=== PATIENT | female | born 1965 | race African-American/Black ===

== ENCOUNTER 2017-11-08 18:57 | Emergency (ER) | payer OTHER, SELFPAY ==
[2017-11-08 19:32] LABS: Hemoglobin 13.9 g/dL (12.0-16.0); Mean Corpuscular HGB CONC 34.8 g/dL (32.0-36.0); Mean Corpuscular Hemoglobin 31.6 pg (27.0-31.0); Mean Corpuscular Volume 90.9 fL (78.0-98.0); Platelet Count 165 thou/uL (130-400); RBC Distribution Width 13.6 % (11.5-14.5); Red Blood Cell (RBC) Count 4.41 mill/uL (4.20-5.40); White Blood Cell (WBC) Count 6.1 thou/uL (4.8-10.8)
[2017-11-08 19:46] LABS: Eosinophils 2 % (0-10); Lymphocytes 63 % (21-51); MDiff Complete? YES; Neutrophil 35 % (42-75); PLT Morphology Comment Appears Adequate; RBC Morphology Normal
[2017-11-08 19:50] LABS: ALT (SGPT) 21 U/L (8-55); AST (SGOT) 45 U/L (5-34); Albumin 3.9 g/dL (3.5-5.0); Alkaline Phosphatase 105 U/L (40-150); Anion Gap 12 mmol/L (10-20); BUN (Urea Nitrogen) 10 mg/dL (9.8-20.1); Bilirubin, Total 0.4 mg/dL (0.2-1.2); CK (CPK) 73 U/L (29-168); Calc. Creatinine Clearance 0 mL/min (70-130); Carbon Dioxide 24 mmol/L (22-29); Chloride 108 mmol/L (98-107); Estimated GFR-MDRD 88; Glucose 90 mg/dL (70-105); Potassium 3.5 mmol/L (3.5-5.1); Protein, Total 7.9 g/dL (6.0-8.3); Sodium 140 mmol/L (136-145)
[2017-11-08 19:55] LABS: CKMB 1.1 ng/mL (0-6.6); Troponin I Less than 0.010 ng/mL (< 0.028)
[2017-11-08] MEDS ORDERED: predniSONE 20 MG TAB ONE (20:14)
[2017-11-08] MEDS ORDERED: Sucralfate 1 GM/10 ML UDCUP ONE (20:14)
[2017-11-08] MEDS ORDERED: Nitroglycerin 2% Ointment 1 INCH/1 GM Packet ONE (20:14)
--- NOTE | 2017-11-08 20:36 | RAD ---
CHEST ONE VIEW 11/08/17 HISTORY: Chest pain. COMPARISON: Chest radiograph 12/15/08. FINDINGS: Lungs are hypoinflated with vascular crowding. No focal air space consolidation, pneumothorax or effu don. No acute osseous abnormality. IMPRESSION: No acute intrathoracic abnormality. POS: [facility]
[2017-11-08] MEDS ORDERED: Hydrochlorothiazide 25 MG TAB PO SCH (21:00)
[2017-11-08] MEDS ORDERED: Amlodipine 5 MG TAB ONE (21:06)
[2017-11-08] MEDS ORDERED: Nitroglycerin 0.4 MG TAB (25 Tab Bottle) ONE (21:54)
[2017-11-08 23:09] LABS: Troponin I Less than 0.010 ng/mL (< 0.028)
== END 2017-11-08 23:40 | disposition home or self-care (01) ==
LOC: ERS 18:57
DX: R07.2 Precordial pain (principal); R06.2 Wheezing; K21.9 Gastro-esophageal reflux disease without esophagitis; I10 Essential (primary) hypertension; F32.9 Major depressive disorder, single episode, unspecified; F17.210 Nicotine dependence, cigarettes, uncomplicated
CPT/HCPCS: 36415; 71045; 80053; 82550; 82553; 84484; 85025; 93005; 99406; J7506; J7620

== ENCOUNTER 2017-11-25 19:30 | Outpatient (CLI) | payer OTHER | END 2017-11-25 19:31 | disposition home or self-care (01) | LOC: SLEEPLAB 19:30 | DX: G47.33 Obstructive sleep apnea (adult) (pediatric) (principal); E66.9 Obesity, unspecified; G47.10 Hypersomnia, unspecified; F32.9 Major depressive disorder, single episode, unspecified; I10 Essential (primary) hypertension | CPT/HCPCS: 95810 ==

== ENCOUNTER 2018-03-06 13:57 | Outpatient (CLI) | payer OTHER | END 2018-03-06 13:58 | disposition home or self-care (01) | LOC: BICMAMMO 13:57 | PROVIDERS: ATTEND Family Medicine | DX: Z12.31 Encounter for screening mammogram for malignant neoplasm of breast (principal) | CPT/HCPCS: 77067 ==

== ENCOUNTER → 2018-03-21 | Day surgery (SDC) | payer OTHER ==
[2018-03-20 09:24] VITALS: BMI 47.5
[~2018-03-21] MED LIST: Acetaminophen 500 MG TAB ONE; Enalaprilat Dihydrate 1.25 MG/ML VIAL SLOW IVP SCH; Lidocaine 1% PF 5 ML VIAL ONE; PROPOFOL 200 MG/20 ML VIAL ONE
--- NOTE | 2018-03-21 16:52 | OP ---
DATE OF PROCEDURE: 03/21/2018 GI ENDOSCOPY NOTE PROOF COIN COLLECTOR SURGEON: None. PROCEDURE PERFORMED: Colonoscopy with snare polypectomy. INDICATION: Average risk colon cancer screening exam. The patient is a 52-year-old. This is her first colonoscopy. MEDICATIONS: See Anesthesia record. FINDINGS: After discussion of the risks, benefits, and alternatives of the procedure, informed consent was obtained and witnessed. Pre-endoscopic cardiopulmonary examination was satisfactory. Time-out was performed before sedation was achieved. Sedation was achieved with Anesthesia assistance in the endoscopy unit. Digital rectal exam was performed, which demonstrated external hemorrhoidal skin tags. A Pentax adult colonoscope was inserted into the anus and passed forward to the cecum in the usual fashion. The cecal base was identified by the appendiceal orifice as well as the ileocecal valve. The terminal ileum was not intubated. The colonoscope was slowly withdrawn in a gradual and circumferential manner with careful examination of the entire colonic mucosa. The quality of the prep was good. In the proximal rectum, there was a single sessile polyp measuring about 3 mm in diameter. This was completely removed with cold snare and retrieved for pathology. The remainder of the colonic mucosa appeared normal throughout. Retroflexion of the rectum demonstrated some hypertrophied anal papillae and internal hemorrhoids. The colonoscope was completely withdrawn, and the patient allowed to recover. The patient tolerated the procedure well. There were no immediate postprocedure complications. IMPRESSION: 1. 3 mm rectal polyp, completely removed with cold snare and retrieved for pathology. 2. Internal hemorrhoids. 3. External hemorrhoidal skin tags. 4. Otherwise, normal colonoscopy to the cecum. RECOMMENDATIONS: 1. Follow up pathology results on the rectal polyp. 2. If the polyp is hyperplastic, repeat colonoscopy for screening in 10 years. 3. If the polyp pathology is adenomatous, repeat colonoscopy for surveillance in 5 years. Job ID: [id number]
== END ==
LOC: SDC 10:01
PROVIDERS: ATTEND Internal Medicine
PROC: 0DBP8ZZ Excision of Rectum, Via Natural or Artificial Opening Endoscopic (ICD-10-PCS; principal; 2018-03-21)
DX: Z12.11 Encounter for screening for malignant neoplasm of colon (principal); K63.5 Polyp of colon; K64.4 Residual hemorrhoidal skin tags; K64.8 Other hemorrhoids; D64.9 Anemia, unspecified; I10 Essential (primary) hypertension; E78.00 Pure hypercholesterolemia, unspecified; E66.01 Morbid (severe) obesity due to excess calories; Z68.42 Body mass index [BMI] 45.0-49.9, adult; F32.9 Major depressive disorder, single episode, unspecified; K21.9 Gastro-esophageal reflux disease without esophagitis; Z98.51 Tubal ligation status; Z79.899 Other long term (current) drug therapy; Z98.890 Other specified postprocedural states
CPT/HCPCS: 88305; 96374; J2001; J2704

== ENCOUNTER 2019-05-30 12:57 | Emergency (ER) | payer OTHER ==
[2019-05-30] MEDS ORDERED: Ketorolac Tromethamine 30 MG/ML VIAL ONE (14:07)
[2019-05-30] MEDS ORDERED: Diazepam 5 MG TAB ONE (14:39)
== END 2019-05-30 14:50 | disposition home or self-care (01) ==
LOC: ERS 12:57
DX: M54.2 Cervicalgia (principal); I10 Essential (primary) hypertension; K21.9 Gastro-esophageal reflux disease without esophagitis; F32.9 Major depressive disorder, single episode, unspecified; Z87.891 Personal history of nicotine dependence; Z79.899 Other long term (current) drug therapy
CPT/HCPCS: 96372; 99283; J1885

== ENCOUNTER 2019-12-01 13:48 | Outpatient (CLI) | payer OTHER ==
--- NOTE | 2019-12-01 16:08 | MRI ---
MRI RIGHT SHOULDER WITHOUT CONTRAST: Date: 12/01/2019 INDICATION: Right shoulder pain with limited and painful range of motion since being handcuffed on 05/27/2019. COMPARISON: None. FINDINGS: There is susceptibility artifact in the greater tuberosity and within the skin overlying the lateral right shoulder likely related to prior rotator cuff repair. There are defects involving the anterior inferior glenoid suspicious for sequelae of prior labral tear. Susceptibility artifact and motion art ifact heavily limits the image detail on exam. No definite full thickness rotator cuff tear is eviden t. There is mild suggested tendinosis of the supraspinatus and infraspinatus. There is a small amount of fluid seen within the subacromial and subdeltoid bursa which is nonspecific. There is postprocedu ral change of a distal clavicle excision. No rotator cuff muscular atrophy is evident. IMPRESSION: 1. Technically limited exam due to motion artifact and susceptibility artifact during the study. The re is no definite full thickness rotator cuff tear. 2. Small amount of fluid in the subacromial and subdeltoid bursa may reflect bursitis. 3. Postprocedural change of a prior rotator cuff tear and glenoid labral repair. POS: [facility]
== END 2019-12-01 13:49 | disposition home or self-care (01) ==
LOC: BICMRI 13:48
PROVIDERS: ATTEND Family Medicine
DX: M25.511 Pain in right shoulder (principal); M25.411 Effusion, right shoulder; Z98.890 Other specified postprocedural states

== ENCOUNTER 2020-01-03 17:41 | Observation (INO) | payer OTHER ==
[2020-01-03] MEDS ORDERED: Metoprolol Tartrate 5 MG/5 ML VIAL ONE (18:19)
--- NOTE | 2020-01-03 18:24 | RAD ---
Portable frontal chest radiograph: 01/03/2020 COMPARISON: 11/08/2017 HISTORY: Dizziness, nausea and vomiting FINDINGS: Lungs are clear. Heart and mediastinal contours appear within normal limits. IMPRESSION: No acute findings.
[2020-01-03] MEDS ORDERED: Ondansetron PF 4 MG/2 ML Vial ONE (18:27)
[2020-01-03 18:34] LABS: #Basophils 0.1 thou/uL (0.0-0.2); #Lymphocytes 2.9 thou/uL (1.20-3.40); #Monocytes 0.6 thou/uL (0.11-0.59); #Neutrophils 5.7 thou/uL (1.40-6.50); %Basophils 0.6 % (0.0-1.0); %Eosinophils 0.4 % (0.0-10.0); %Lymphocytes 31.4 % (21.0-51.0); %Monocytes 6.1 % (0.0-10.0); %Neutrophils 61.5 % (42.0-75.0); Hemoglobin 17.3 g/dL (12.0-16.0); Mean Corpuscular HGB CONC 35.5 g/dL (32.0-36.0); Mean Corpuscular Hemoglobin 32.1 pg (27.0-31.0); Mean Corpuscular Volume 90.4 fL (78.0-98.0); Mean Platelet Volume 8.2 fL (7.4-10.4); Platelet Count 198 thou/uL (130-400); RBC Distribution Width 12.5 % (11.5-14.5); White Blood Cell (WBC) Count 9.3 thou/uL (4.8-10.8)
[2020-01-03 18:54] LABS: ALT (SGPT) 22 U/L (8-55); AST (SGOT) 36 U/L (5-34); Albumin 4.8 g/dL (3.5-5.0); Alkaline Phosphatase 108 U/L (40-110); Anion Gap 21 mmol/L (10-20); BUN (Urea Nitrogen) 34 mg/dL (9.8-20.1); Calc. Creatinine Clearance 0 mL/min (70-130); Carbon Dioxide 21 mmol/L (22-29); Chloride 99 mmol/L (98-107); Estimated GFR-MDRD 39; Globulin 4.6 g/dL (2.4-3.5); Glucose 134 mg/dL (70-105); Potassium 3.4 mmol/L (3.5-5.1); Protein, Total 9.4 g/dL (6.0-8.3); Sodium 138 mmol/L (136-145)
--- NOTE | 2020-01-03 19:53 | PDOC.FPRHP ---
- History of Present Illness Chief Complaint: Diaphoretic, N/V History of Present Illness: Pt is 1 54 yo female with PMH of HTN, HLD, prediabetes, and depression who presented to the ED for diaphoresis, dizziness, palpitations, and N/V. She reports that she has had a decreased appetite for the past 3-4 days and this morning she began to have episodes of sweating with associated nausea. She attempted to attend her granddaughters birthday libertarian, but remained diaphoretic and nauseas. She reports that she would become dizzy while standing and has had some changes in her vision. She also reports leg cramps that began earlier this week and Patient was recently started on lisinopril but stopped taking it on Sunday due to the above symptoms. Denies fever, chills, SOB, CP. ED Course: Tachycardic to the 150s on arrival Given 500 ml NS, 5 mg of metformin, and zofran - Allergies/Adverse Reactions Allergies Allergy/AdvReac Type Severity Reaction Status Date / Time No Known Allergies Allergy Verified 01/03/20 22:00 - Home Medications Medication Instructions Recorded Confirmed Type Amlodipine [Norvasc] 10 mg PO DAILY 03/20/18 01/03/20 History Atorvastatin Calcium [Lipitor] 80 mg PO HS 03/20/18 01/03/20 History Cyclobenzaprine [Flexeril] 10 mg PO TID PRN 01/03/20 01/03/20 History FLUoxetine HCl [Fluoxetine HCl] 40 mg PO DAILY 01/03/20 01/03/20 History Famotidine [Pepcid] 40 mg PO DAILY 01/03/20 01/03/20 History Hydrochlorothiazide 12.5 mg PO HS 01/03/20 01/03/20 History Hydrochlorothiazide 25 mg PO QAM 01/03/20 01/03/20 History - History PMHx: HTN, HLD, prediabetes, depression, constipation PSHx: tubal ligation, hemorrhoidectomy, R. rotator cuff repair, trigger thumb release FHx: Mother - diabetes, HTN, depression Social: Denies t/a/d - Review of Systems General: denies: fever/chills, weight/appetite/sleep changes Eyes: reports: vision changes ENT: denies: nasal congestion, rhinorrhea Respiratory: denies: cough, congestion, shortness of breath Cardiovascular: reports: palpitation, edema. denies: chest pain Gastrointestinal: reports: nausea, vomiting. denies: diarrhea, constipation Genitourinary: denies: dysuria, polyuria Skin: denies: rashes, lesions Musculoskeletal: reports: pain, swelling Neurological: reports: weakness. denies: numbness Psychological: reports: depression. denies: anxiety - Vital signs BP: 155/118 HR: 119 RR: 20 Tmax: 98.6 Pox: 96% on RA Wt: 118 kg - Physical Exam Constitutional: NAD, awake, alert and oriented HEENT: normocephalic and atraumatic, PERRLA, EOMI Neck: supple, FROM Heart: RRR, normal S1/S2 Lungs: CTAB, no respiratory distress Abdomen: soft, non-tender, bowel sounds present Musculoskeletal: normal structure, normal tone Neurological: no focal deficit, normal sensation Skin: no rash/lesions, no jaundice Heme/Lymphatic: no unusual bruising or bleeding, no purpura, no petechia Psychiatric: normal mood and affect, good judgment and insight, intact recent and remote memory FMR H&P: Results - Labs Result Diagrams: 01/04/20 04:57 01/04/20 04:57 Lab results: WBC 9.3 thou/uL (4.8-10.8) 01/03/20 18:23 Hgb 17.3 g/dL (12.0-16.0) H 01/03/20 18:23 Hct 48.8 % (36.0-47.0) H 01/03/20 18:23 MCV 90.4 fL (78.0-98.0) 01/03/20 18:23 Plt Count 198 thou/uL (130-400) 01/03/20 18:23 Neutrophils % 61.5 % (42.0-75.0) 01/03/20 18:23 Sodium 138 mmol/L (136-145) 01/03/20 18:23 Potassium 3.4 mmol/L (3.5-5.1) L 01/03/20 18:23 Chloride 99 mmol/L (98-107) 01/03/20 18:23 Carbon Dioxide 21 mmol/L (22-29) L 01/03/20 18:23 BUN 34 mg/dL (9.8-20.1) H 01/03/20 18:23 Creatinine 1.66 mg/dL (0.6-1.1) H 01/03/20 18:23 Glucose 134 mg/dL (70-105) H 01/03/20 18:23 Calcium 10.0 mg/dL (7.8-10.44) 01/03/20 18:23 Total Bilirubin 1.0 mg/dL (0.2-1.2) 01/03/20 18:23 AST 36 U/L (5-34) H 01/03/20 18:23 ALT 22 U/L (8-55) 01/03/20 18:23 Alkaline Phosphatase 108 U/L (40-110) 01/03/20 18:23 B-Natriuretic Peptide Less than 10.0 pg/mL (0-100) 01/03/20 18:23 Serum Total Protein 9.4 g/dL (6.0-8.3) H 01/03/20 18:23 Albumin 4.8 g/dL (3.5-5.0) 01/03/20 18:23 - EKG Interpretation EKG: Sinus tachycardia in 150s, repeat showed ST in 140s - Radiology Interpretation Chest x-ray Status: image reviewed by me, report reviewed by me Additional comment: unremarkable FMR H&P: A/P - Problem List (1) NATY (acute kidney injury) Current Visit: Yes Status: Acute Code(s): N17.9 - ACUTE KIDNEY FAILURE, UNSPECIFIED (2) Dehydration Current Visit: Yes Status: Acute Code(s): E86.0 - DEHYDRATION (3) Tachycardia Current Visit: Yes Status: Acute Code(s): R00.0 - TACHYCARDIA, UNSPECIFIED (4) Hypertension Current Visit: Yes Status: Chronic Code(s): I10 - ESSENTIAL (PRIMARY) HYPERTENSION (5) Hyperlipemia Current Visit: Yes Status: Chronic Code(s): E78.5 - HYPERLIPIDEMIA, UNSPECIFIED (6) Prediabetes Current Visit: Yes Status: Chronic Code(s): R73.03 - PREDIABETES - Plan NATY likely 2/2 to dehydration - per patient, decreased PO intake - s/p 500 mls of NS in ED - Cr: 1.66, Cr of 0.78 on 06/2018 - will continue IV fluids of LR @ 150mls/hr - will monitor with morning BMP Tachycardia - likely 2/2 to above - s/p 500 NS in ED - will start patient on 3.125 of Coreg BID for BP and HR control - will obtain TSH HTN - patient recently started on Lisinopril, has not taken medication since Sunday - will hold Lisinopril - will continue amlodipine and HCTZ - will start Coreg as above - due to patient's presentation and ER reports of chest pain, we will continue to trend troponin - Troponin: less than 0.010 HLD - will continue home atorvastatin - will obtain fasting lipid panel Prediabetes - will obtain A1C Depression - continue home fluoxetine PCP: Francois Code: FULL Diet: HH IVF: LR @ 150 mls/hr for 2 bags PPx: Lovenox Dispo: Will admit to tele for further observation; likely LOS < 48 hrs. FMR H&P: Upper Level - Plan Date/Time: 01/03/201952 IGurpreet DO, have evaluated this patient and agree with findings/plan as outlined by phd internship resident. Pertinent changes/additions are listed here. This is a 54 yo female with a pmh of obesity, HTN, and prediabetes who presents to the ER with a cc of chest pain. She states her symptoms have been going on for the last day or two and are associated with SOB, diaphoresis, fatigue, and palpitations. She has currently been trying to adjust her BP medications and was put on Lisinopril for her BP. She states that her symptoms started since then and has not taken the lisinopril in a week. She states that she has been feeling diaphoretic and this worsens when she is moving. If she sits still, she reports the sweating resolves on its own. It appears that these side effects started yesterday and she called the clinic and was instructed to stop the Lisinopril. In addition, she takes Amlodipine 10mg daily, and HCTZ 25mg BID. She currently reports that she is asymptomatic. Objective: Vitals: BP 161/114, HR 108, RR 17, Temp 98.2, SpO2 98 RA, Wt 117 kg General: NAD HEENT: AT/NC Cardio: RRR, no murmurs Lungs: CTAB Abdomen: Soft, nontender, BS+ A/P Hypertension, uncontrolled -Admit to tele obs -Radial cuff poorly placed, repeat BP shows 132/92 -Continue home BP medications -Stop Lisinopril -S/P 500ml NS in the er, will continue maintenance fluids -labetalol PRN -Trend troponins, Neg x1 -EKG shows Sinus tachycardia, will repeat now that her HR is lower -Will add coreg to her regimen NATY -Last labs show baseline Cr of 0.78 in 06/2018 -Will trend with BMP and treat with hydration -Likely due to dehydration and new ACEi Anion gap of 18 -Likely 2/2 dehydration and NATY -Will monitor with AM BMP -Continue fluids Dehydrations -As above Prediabetes -Will repeat A1c during hospital stay Code: Full Prophylaxis: Lovenox Family: none at bedside Fluids: LR Diet: HH Disposition: DC in 1-2 days PCP: RASHMI Camilo Addendum - Attending - Attending Attestation Date/Time: 01/04/20 7530 I personally evaluated the patient and discussed the management with Dr. Johnston I agree with the History, Examination, Assessment and Plan documented above with any addition or exceptions noted below.
[2020-01-03] MEDS ORDERED: Aspirin Chewable 81 MG TAB ONE (19:54)
[2020-01-03] MEDS ORDERED: Ondansetron PF 4 MG/2 ML Vial IVP PRN (20:21)
[2020-01-03] MEDS ORDERED: Ondansetron ODT 4 MG TAB PO PRN (20:21)
[2020-01-03] MEDS ORDERED: Acetaminophen 325 MG TAB PO PRN (20:21)
[2020-01-03 21:05] LABS: Hemoglobin A1c 5.8 % (4.0-6.0)
[2020-01-03 21:49] LABS: Troponin I 0.015 ng/mL (< 0.028)
[2020-01-03 22:13] VITALS: BMI 44.1
[2020-01-03] MEDS ORDERED: Carvedilol 3.125 MG TAB PO SCH (22:30)
[2020-01-03] MEDS ORDERED: Hydrochlorothiazide 25 MG TAB PO SCH (23:15)
[2020-01-03] MEDS ORDERED: Atorvastatin Calcium 40 MG TAB PO SCH (23:15)
[2020-01-03] MEDS: Lactated Ringer's 1,000 ML IV SCH (23:27)
[2020-01-04 01:19] LABS: Troponin I 0.019 ng/mL (< 0.028)
[2020-01-04 05:14] LABS: #Basophils 0.1 thou/uL (0.0-0.2); #Eosinphils 0.1 thou/uL (0.0-0.7); #Lymphocytes 3.3 thou/uL (1.20-3.40); #Monocytes 0.7 thou/uL (0.11-0.59); #Neutrophils 4.5 thou/uL (1.40-6.50); %Basophils 0.9 % (0.0-1.0); %Eosinophils 0.6 % (0.0-10.0); %Lymphocytes 38.2 % (21.0-51.0); %Monocytes 8.3 % (0.0-10.0); %Neutrophils 52.1 % (42.0-75.0); Hemoglobin 15.4 g/dL (12.0-16.0); Mean Corpuscular HGB CONC 32.6 g/dL (32.0-36.0); Mean Corpuscular Hemoglobin 29.6 pg (27.0-31.0); Mean Corpuscular Volume 90.8 fL (78.0-98.0); Mean Platelet Volume 8.5 fL (7.4-10.4); Platelet Count 182 thou/uL (130-400); RBC Distribution Width 12.6 % (11.5-14.5); Red Blood Cell (RBC) Count 5.21 mill/uL (4.20-5.40); White Blood Cell (WBC) Count 8.6 thou/uL (4.8-10.8)
[2020-01-04 05:40] LABS: Anion Gap 17 mmol/L (10-20); BUN (Urea Nitrogen) 33 mg/dL (9.8-20.1); Calc. Creatinine Clearance 106 mL/min (70-130); Calcium 9.6 mg/dL (7.8-10.44); Carbon Dioxide 21 mmol/L (22-29); Cardiac Risk 3.7 (Less than 4.5); Chloride 100 mmol/L (98-107); Cholesterol 146 mg/dl (< 200 Desired); Estimated GFR-MDRD 60; Glucose 96 mg/dL (70-105); HDL Cholesterol 40 mg/dL (>60 Neg Risk); LDL Cholesterol, Calculated 87 mg/dL; Potassium 3.6 mmol/L (3.5-5.1); Sodium 134 mmol/L (136-145); Triglycerides 97 mg/dL (Less than 150)
[2020-01-04] MEDS: Lactated Ringer's 1,000 ML IV SCH (06:37)
--- NOTE | 2020-01-04 06:51 | PDOC.FM ---
- Subjective Subjective: Patient feels much improved today. No issues voiding, no sxs with ambulating- ready to go home. States she had dec appetite from depression-interested in counseling - Objective MAR Reviewed: Yes Vital Signs & Weight: Vital Signs (12 hours) Temp Pulse Resp BP BP Pulse Ox 01/04/20 04:00 98.7 F 107 H 17 115/82 95 01/04/20 00:00 98.1 F 100 19 121/97 H 96 01/03/20 23:34 117 H 121/97 H 01/03/20 21:55 98.9 F 115 H 18 144/98 H 97 Weight Weight 120.474 kg I&O: 01/02/20 01/03/20 01/04/20 06:59 06:59 06:59 Intake Total 390 Output Total 1 Balance 389 Result Diagrams: 01/04/20 04:57 01/04/20 04:57 Phys Exam - Physical Examination Constitutional: NAD HEENT: PERRLA, moist MMs Respiratory: no wheezing, clear to auscultation bilateral Cardiovascular: no significant murmur Gastrointestinal: soft, non-tender, no distention Musculoskeletal: no edema Neurological: non-focal, moves all 4 limbs Psychiatric: A&O x 3 Deviation from normal: anxious affect Dx/Plan - Plan Plan: NATY likely 2/2 to dehydration - Cr trending down with IVF Tachycardia - Improved with hydration - Residual tachycardia from anxiety HTN - d/c lisinopril - will continue amlodipine and HCTZ - continue Coreg as above, send home on this - pt denies ever having chest pain, trops neg. x3,no further cardiac w/u indicated HLD - will continue home atorvastatin - FLP at goal Prediabetes - a1c 5.8, at goal Depression - continue home fluoxetine PCP: Francois Code: FULL Diet: HH IVF: LR @ 150 mls/hr for 2 bags PPx: Lovenox Dispo: Wd/c today Addendum - Attending - Attending Attestation Date/Time: 01/04/20 [id number] I personally evaluated the patient and discussed the management with Dr. Isidro I agree with the History, Examination, Assessment and Plan documented above with any addition or exceptions noted below.
[2020-01-04] MEDS ORDERED: Carvedilol 3.125 MG TAB PO SCH (08:00)
[2020-01-04] MEDS ORDERED: Amlodipine 10 MG TAB PO SCH (09:00)
[2020-01-04] MEDS ORDERED: FLUoxetine HCl 20 MG CAP PO SCH (09:00)
[2020-01-04] MEDS ORDERED: Famotidine 20 MG TAB PO SCH (09:00)
[2020-01-04] MEDS ORDERED: Hydrochlorothiazide 25 MG TAB PO SCH ×2 (09:00→21:00)
[2020-01-04] MEDS ORDERED: Enoxaparin Sodium 40 MG/0.4 ML SYRINGE SC SCH (09:00)
[2020-01-04 12:40] LABS: SARS-CoV-2 MS2 Positive; SARS-CoV-2 N Gene Negative; SARS-CoV-2 S Gene Negative; SARS-CoV-2 by NAA Not Detected (NotDetected); SARS-CoV-2 orf1ab Negative
[2020-01-04 12:51] VITALS: BP 129/90; TEMP 98.1
[2020-01-04] MEDS ORDERED: FLU VACC QS2020-21(6MOS UP)/PF 60 MCG/0.5 ML SYRINGE IM ONE (21:00)
[2020-01-04] MEDS ORDERED: Atorvastatin Calcium 40 MG TAB PO SCH (21:00)
--- NOTE | 2020-01-11 20:22 | DIS ---
DATE OF ADMISSION: 01/03/2020 DATE OF DISCHARGE: 01/04/2020 CONSULTS: None. PRIMARY DIAGNOSES: 1. Acute kidney injury secondary to dehydration. 2. Possible adverse effect from lisinopril. 3. Dehydration secondary to depression. 4. Tachycardia. IMAGING: Chest x-ray, no acute findings. DISCHARGE MEDICATIONS: New medication: 1. Coreg 3.125 mg p.o. b.i.d. 2. Zofran 4 mg p.o. q.6 hours p.r.n. for nausea. Resume all home medications: 1. Atorvastatin 80 mg p.o. at bedtime. 2. Amlodipine 10 mg p.o. daily. 3. HCTZ 12.5 mg p.o. at bedtime. 4. HCTZ 25 mg p.o. q.a.m. 5. Fluoxetine 40 mg p.o. daily. 6. Famotidine 40 mg p.o. daily. 7. Cyclobenzaprine 10 mg p.o. t.i.d. p.r.n. for muscle spasm. 8. Tylenol. Discontinued medications: Lisinopril. HISTORY OF PRESENT ILLNESS AND HOSPITAL COURSE: Ms. Brenda Anand is a 54-year-old female with prediabetes and hypertension, who came in for diaphoresis, nausea, and vomiting. She had decreased p.o. intake in the past 4 days because she had been feeling more depressed thinking about the passing of her mother. The day she came in, she felt acutely worse with nausea and vomiting and diaphoresis. She went to the ER in which she was found to have an NATY, thought likely secondary to dehydration. She was started on IV fluids and improved back to baseline overnight. In addition, she was found to have tachycardia, which improved and was down to 100 to 110 upon discharge. On examination, she was not tachycardic for me, and she was also a little anxious, which could explain that. EKG showed sinus tachycardia. She denies having any palpitations or any prior cardiac history or symptoms from there. TSH was negative. Overall, the patient was likely experiencing symptoms from dehydration and NATY. A discussion was had, and the patient was interested in counseling, which she will discuss with her PCP on a followup on Sunday. Can consider switching from Prozac, however, it seems to be working for her with only periodic depressive days. In addition, please discontinue patient's lisinopril. She had been off it the past week because she felt as if it was causing her leg cramps, though that was likely from dehydration. She was started on Coreg in which her blood pressure responded well. Can continue this also for pulse control. Please follow up on pulse in outpatient setting. The patient stable and asymptomatic at time of discharge. DISPOSITION: Stable. DISCHARGE INSTRUCTIONS: 1. Location: Home. 2. Diet: Heart healthy. 3. Activity: Ad xavier as tolerated. 4. Followup: Please follow up with PCP, Dr. Parrish on Sunday at [facility]. 5. Please follow up for NATY, may consider repeat BMP since her creatinine was improved but not at baseline on discharge. 6. Please follow up to make sure she is tolerating Coreg well. May need increase depending on blood pressure. 7. Please follow up on depression. The patient is interested in counseling. Recommended for outpatient. 8. Please follow up on tachycardia. May have resolved. May need further workup as now the patient is asymptomatic. Job ID: [id number]
== END 2020-01-04 15:05 | disposition home or self-care (01) ==
LOC: ERS 17:41 → 2SE 20:14
PROVIDERS: ADMIT Family Medicine; ATTEND Family Medicine
DX: F32.9 Major depressive disorder, single episode, unspecified (principal); E86.0 Dehydration; N17.9 Acute kidney failure, unspecified; R00.0 Tachycardia, unspecified; I10 Essential (primary) hypertension; E78.5 Hyperlipidemia, unspecified; R73.03 Prediabetes; K59.00 Constipation, unspecified; K21.9 Gastro-esophageal reflux disease without esophagitis; Z87.891 Personal history of nicotine dependence; Z79.899 Other long term (current) drug therapy; Z20.828 Contact with and (suspected) exposure to other viral communicable diseases
CPT/HCPCS: 36415; 71045; 80048; 80053; 80061; 83036; 83880; 84443; 84484; 85025; 87635; 93005; 96361; 96372; 96374; 96375; 96376; G0378; J1650; J2405; U0003

== ENCOUNTER 2020-10-07 08:19 | Day surgery (SDC) | payer OTHER ==
[2020-10-06 14:28] VITALS: BMI 43.5
[2020-10-07] MEDS ORDERED: Lidocaine 1% w/Epinephrine 1:100K 20 ML VIAL ONE (08:43)
[2020-10-07] MEDS ORDERED: Fentanyl 100 MCG/2 ML VIAL ONE (08:53)
[2020-10-07] MEDS ORDERED: Midazolam HCl 2 mg/2 ml Vial ONE (08:53)
[2020-10-07] MEDS ORDERED: Ondansetron PF 4 MG/2 ML Vial ONE (08:56)
[2020-10-07] MEDS ORDERED: Ketorolac Tromethamine 30 MG/ML VIAL ONE (08:56)
[2020-10-07] MEDS ORDERED: PROPOFOL 200 MG/20 ML VIAL ONE (08:56)
[2020-10-07] MEDS ORDERED: Lidocaine 1% PF 5 ML VIAL ONE (08:56)
[2020-10-07] MEDS ORDERED: Dexamethasone 20 MG/5 ML VIAL ONE (08:56)
== END 2020-10-07 12:47 | disposition home or self-care (01) ==
LOC: SDC 08:19
PROVIDERS: ATTEND Orthopaedic Surgery
PROC: 01N50ZZ Release Median Nerve, Open Approach (ICD-10-PCS; principal; 2020-10-07)
DX: G56.02 Carpal tunnel syndrome, left upper limb (principal); I10 Essential (primary) hypertension; E78.5 Hyperlipidemia, unspecified; K21.9 Gastro-esophageal reflux disease without esophagitis; G47.33 Obstructive sleep apnea (adult) (pediatric); F17.200 Nicotine dependence, unspecified, uncomplicated; Z79.899 Other long term (current) drug therapy; Z98.890 Other specified postprocedural states
CPT/HCPCS: J0690; J1100; J1885; J2250; J2405; J2704; J3010

== ENCOUNTER 2021-01-20 08:42 | Outpatient (CLI) | payer OTHER | END 2021-01-20 08:43 | disposition home or self-care (01) | LOC: BICULT 08:42 | PROVIDERS: ATTEND Family Medicine | DX: N94.9 Unspecified condition associated with female genital organs and menstrual cycle (principal); D25.9 Leiomyoma of uterus, unspecified; N85.2 Hypertrophy of uterus | CPT/HCPCS: 76856 ==

== ENCOUNTER 2021-01-20 09:21 | Outpatient (CLI) | payer OTHER | END 2021-01-20 09:22 | disposition home or self-care (01) | LOC: BICMAMMO 09:21 | PROVIDERS: ATTEND Family Medicine | DX: Z12.31 Encounter for screening mammogram for malignant neoplasm of breast (principal) | CPT/HCPCS: 77067 ==

== ENCOUNTER 2023-01-29 18:35 | Emergency (ER) | payer OTHER ==
[2023-01-29 21:19] LABS: SARS-CoV-2 NAA Rapid Test Not Detected (NotDetected)
== END 2023-01-29 22:15 | disposition home or self-care (01) ==
LOC: ERS 18:35
DX: J10.1 Influenza due to other identified influenza virus with other respiratory manifestations (principal); H66.013 Acute suppurative otitis media with spontaneous rupture of ear drum, bilateral; H73.93 Unspecified disorder of tympanic membrane, bilateral; I10 Essential (primary) hypertension; E11.9 Type 2 diabetes mellitus without complications; K21.9 Gastro-esophageal reflux disease without esophagitis; Z87.891 Personal history of nicotine dependence; Z20.822 Contact with and (suspected) exposure to COVID-19; Z79.899 Other long term (current) drug therapy; Z79.84 Long term (current) use of oral hypoglycemic drugs
CPT/HCPCS: 99283

== ENCOUNTER 2023-09-04 07:33 | Outpatient (CLI) | payer OTHER | END 2023-09-04 07:34 | disposition home or self-care (01) | LOC: BICCT 07:33 | PROVIDERS: ATTEND Student in an Organized Health Care Education/Training Program | DX: Z12.2 Encounter for screening for malignant neoplasm of respiratory organs (principal); Z72.0 Tobacco use; R91.8 Other nonspecific abnormal finding of lung field; I70.0 Atherosclerosis of aorta; E27.8 Other specified disorders of adrenal gland; M47.9 Spondylosis, unspecified | CPT/HCPCS: 71271 ==

== ENCOUNTER 2024-01-24 10:55 | Outpatient (CLI) | payer OTHER | END 2024-01-24 10:56 | disposition home or self-care (01) | LOC: BICCT 10:55 | PROVIDERS: ATTEND Student in an Organized Health Care Education/Training Program | DX: R10.12 Left upper quadrant pain (principal); E27.8 Other specified disorders of adrenal gland; N28.89 Other specified disorders of kidney and ureter; D73.89 Other diseases of spleen; M47.816 Spondylosis without myelopathy or radiculopathy, lumbar region | CPT/HCPCS: 74160; 82565 ==

== ENCOUNTER 2024-02-12 09:22 | Outpatient (CLI) | payer OTHER | END 2024-02-12 09:23 | disposition home or self-care (01) | LOC: BICCT 09:22 | DX: E27.9 Disorder of adrenal gland, unspecified (principal); D35.01 Benign neoplasm of right adrenal gland | CPT/HCPCS: 74150 ==